=== PATIENT | male | born 1985 | race Caucasian/White ===

== ENCOUNTER 2021-08-22 21:10 | Emergency (ER) | payer OTHER ==
[~2021-08-22] VITALS: Ht 182.9 cm; Wt 77.2 kg
[2021-08-22] MEDS ORDERED: IV NORMAL SALINE 1000ML BAG 1,000 ML IV ONE (21:45)
[2021-08-22] MEDS ORDERED: diphenhydrAMINE 50 MG/ML VIAL IVP ONE (21:45)
[2021-08-22] MEDS ORDERED: DEXAMETHASONE SOD PHOS 20 MG/5 ML VIAL. IV ONE (21:45)
[2021-08-22] MEDS ORDERED: PROCHLORPERAZINE 10 MG/2 ML VIAL. IV ONE (21:45)
--- NOTE | 2021-08-22 21:48 | ED.ADGEN ---
Past Medical History Additional Past Medical Histor: ADHD, PREVIOUS SI ATTEMPTS Past Surgical History: Cholecystectomy, Other Additional Past Surgical Histo: ICL, HERNIA, L TESTICAL SURGERY Smoking Status: Current Every Day Smoker Alcohol Use: Occasionally General Adult EDM: Chief Complaint: SUICDAL IDEATION HPI: HPI: Patient is a 36 year old male presenting via EMS for suicidal ideations and h eadache. Patient states that he has had a headache is all over and throbbing for the past 2 weeks. It is similar to his current headaches but would not go away. He says he went to his primary care physician last week and got IM injections of Toradol and Phenergan. He states he had some improvement after that but the headache has intensified again. Denies any neck pain or stiffness. Denies any vision changes. Complaining of photophobia. States he is trying to commit suicide 3 times in the past year by hanging. Says his plan will be hanging again this time. Review of Systems: Review of Systems: All other systems within normal limits except for as noted in the HPI Current Medications: Current Medications Medications (Trade) Dose Ordered Sig/Shi Start Time Stop Time Status Last Admin Dose Admin Dexamethasone Sodium Phosphate (Decadron) 10 mg 1X ONCE 08/22/21 21:45 08/22/21 21:54 DC 08/22/21 22:08 10 MG Diphenhydramine HCl (Benadryl) 25 mg 1X ONCE 08/22/21 21:45 08/22/21 21:54 DC 08/22/21 22:10 25 MG Nicotine (Nicoderm Cq 21mg) 1 patch 1X ONCE 08/23/21 09:00 08/23/21 09:01 DC 08/23/21 08:33 1 PATCH Prochlorperazine Edisylate (Compazine) 10 mg 1X ONCE 08/22/21 21:45 08/22/21 21:54 DC 08/22/21 22:12 10 MG Sodium Chloride 1,000 ml @ 1,000 mls/hr 1X ONCE 08/22/21 21:45 08/22/21 22:44 DC 08/22/21 21:45 1,000 MLS/HR Allergies: Allergies: Allergies Coded Allergies Type Severity Reaction Last Updated Verified Penicillins Allergy Severe 08/22/21 Yes sulfamethoxazole Allergy Severe 08/22/21 Yes trimethoprim Allergy Severe 08/22/21 Yes Uncoded Allergies Type Severity Reaction Last Updated Verified RED MEAT Allergy Unknown UNKNOWN 08/23/21 Physical Exam: PE: Constitutional: Well developed, well nourished, no acute distress, non-toxic appearance. [] HENT: Normocephalic, atraumatic, bilateral external ears normal, nose normal. [] Eyes: PERRLA, conjunctiva normal, no discharge. [] Neck: No rigidity, supple, no stridor. [] Cardiovascular: Regular rate and rhythm, brisk cap refill [] Lungs & Thorax: Non labored symmetric respirations, no tachypnea or respiratory distress [] Abdomen: Soft, nondistended. Skin: Warm, dry, no erythema, no rash. [] Back: Unremarkable Extremities: No deformities, range of motion grossly intact, no lower extremity edema [] Neurologic: Alert and oriented X 3, no focal deficits noted. [] Psychologic: Suicidal ideation [] Current Patient Data: Labs: Laboratory Tests Test 08/22/21 22:00 08/22/21 23:05 08/22/21 23:55 White Blood Count 9.7 x10^3/uL (4.0-11.0) Red Blood Count 4.82 x10^6/uL (4.30-5.70) Hemoglobin 15.3 g/dL (13.0-17.5) Hematocrit 43.0 % (39.0-53.0) Mean Corpuscular Volume 89 fL (79-100) Mean Corpuscular Hemoglobin 32 pg (25-35) Mean Corpuscular Hemoglobin Concent 36 g/dL (31-37) Red Cell Distribution Width 12.3 % (11.5-14.5) Platelet Count 246 x10^3/uL (140-400) Neutrophils (%) (Auto) 76 % (31-73) H Lymphocytes (%) (Auto) 18 % (24-48) L Monocytes (%) (Auto) 5 % (0-9) Eosinophils (%) (Auto) 0 % (0-3) Basophils (%) (Auto) 1 % (0-3) Neutrophils # (Auto) 7.4 x10^3/uL (1.8-7.7) Lymphocytes # (Auto) 1.7 x10^3/uL (1.0-4.8) Monocytes # (Auto) 0.5 x10^3/uL (0.0-1.1) Eosinophils # (Auto) 0.0 x10^3/uL (0.0-0.7) Basophils # (Auto) 0.1 x10^3/uL (0.0-0.2) Sodium Level 139 mmol/L (136-145) Potassium Level 3.7 mmol/L (3.5-5.1) Chloride Level 102 mmol/L (98-107) Carbon Dioxide Level 24 mmol/L (21-32) Anion Gap 13 (6-14) Blood Urea Nitrogen 15 mg/dL (8-26) Creatinine 1.2 mg/dL (0.7-1.3) Estimated GFR (Cockcroft-Gault) 68.1 BUN/Creatinine Ratio 13 (6-20) Glucose Level 87 mg/dL (70-99) Calcium Level 9.2 mg/dL (8.5-10.1) Magnesium Level 1.9 mg/dL (1.8-2.4) Total Bilirubin 1.0 mg/dL (0.2-1.0) Aspartate Amino Transferase (AST) 12 U/L (15-37) L Alanine Aminotransferase (ALT) 20 U/L (16-63) Alkaline Phosphatase 75 U/L (46-116) Total Protein 7.9 g/dL (6.4-8.2) Albumin 4.6 g/dL (3.4-5.0) Albumin/Globulin Ratio 1.4 (1.0-1.7) Salicylates Level 2.5 mg/dL (2.8-20.0) L Salicylate Last Dose Date Salicylate Last Dose Time Acetaminophen Level < 2 mcg/ml (10-30) L Acetaminophen Last Dose Date Acetaminophen Last Dose Time Ethyl Alcohol Level < 10 mg/dL (0-10) SARS-CoV-2 RNA (FACUNDO) Negative (Negative) SARS-CoV-2 Antigen (Rapid) Negative (NEGATIVE) Urine Collection Type Unknown Urine Color Yellow Urine Clarity Hazy Urine pH 5.5 (<5.0-8.0) Urine Specific [place] 1.020 (1.000-1.030) Urine Protein Negative mg/dL (NEG-TRACE) Urine Glucose (UA) Negative mg/dL (NEG) Urine Ketones (Stick) 15 mg/dL (NEG) Urine Blood Negative (NEG) Urine Nitrite Negative (NEG) Urine Bilirubin Negative (NEG) Urine Urobilinogen Dipstick 1.0 mg/dL (0.2 mg/dL) Urine Leukocyte Esterase Negative (NEG) Urine RBC 0 /HPF (0-2) Urine WBC 0 /HPF (0-4) Urine Squamous Epithelial Cells Few /LPF Urine Bacteria 0 /HPF (0-FEW) Urine Hyaline Casts Few /HPF Urine Mucus Marked /LPF Urine Opiates Screen Neg (NEG) Urine Methadone Screen Neg (NEG) Urine Barbiturates Neg (NEG) Urine Phencyclidine Screen Neg (NEG) Urine Amphetamine/Methamphetamine Pos (NEG) Urine Benzodiazepines Screen Neg (NEG) Urine Cocaine Screen Neg (NEG) Urine Cannabinoids Screen Pos (NEG) Urine Ethyl Alcohol Neg (NEG) Laboratory Tests 08/22/21 22:00 Laboratory Tests 08/22/21 22:00 Vital Signs: Vital Signs Date Time Temp Pulse Resp B/P (MAP) Pulse Ox O2 Delivery O2 Flow Rate FiO2 08/23/21 14:22 82 19 125/75 (92) 97 Room Air 08/23/21 08:29 97.5 97.5 EKG: EKG: Sinus rhythm, heart rate 62 bpm, incomplete right bundle branch block, no ST ovation depression, normal intervals [] Heart Score: C/O Chest Pain: No Risk Factors: Risk Factors: DM, Current or recent (<one month) smoker, HTN, HLP, family h istory of CAD, obesity. Risk Scores: Score 0 - 3: 2.5% MACE over next 6 weeks - Discharge Home Score 4 - 6: 20.3% MACE over next 6 weeks - Admit for Clinical Observation Score 7 - 10: 72.7% MACE over next 6 weeks - Early Invasive Strategies Radiology/Procedures: Radiology/Procedures: [facility] [address] [place] [address] IMAGING REPORT Signed PATIENT: NAHID SEXTON ACCOUNT: [id number] : 1985 LOCATION: ER AGE: 36 SEX: M EXAM STATUS: PRE ER ORD. PHYSICIAN: GENEVA BAY MD REASON: headache PROCEDURE: CT HEAD WO CONTRAST CT scan of the head without contrast 08/22/2021 Clinical History: Headache. Technique: Unenhanced, contiguous, 5 mm axial sections were obtained through the head. One or more of the following individualized dose reduction techniques were utilized for this study: 1. Automated exposure control. 2. Adjustment of the mA and/or kV according to patient size. 3. Use of iterative reconstruction technique. Findings: The ventricles and sulci are within normal limits in size and configuration. No acute parenchymal abnormality is seen. No extra-axial fluid collection is noted. No skull fracture is seen. Impression: No acute intracranial abnormality is seen. Electronically signed by: Mihir Fernandez MD (08/22/2021 10:45 PM) [id number] DICTATED and SIGNED BY: MIHIR FERNANDEZ MD DATE: 08/22/21 [id number] [] Course & Med Decision Making: Course & Med Decision Making Pertinent Labs and Imaging studies reviewed. (See chart for details) Medically cleared for PAT evaluation Patient told PAT number Virginie that he will commit suicide if not inpatient but also states that since he is discharged he will kill himself as soon as he leaves the facility. Patient is still remaining voluntary at this point. And is pending placement at shift change, his file is currently being reviewed by [facility]. 0600- Sign out received from Dr. Bay for patient pending acceptance for inpatient psychiatric services. Will continue 1:1 observation and await accepting facility or physician. Labs reviewed. In agreement with medical clearance. [id number]- Patient accepted for inpatient psychiatric services to [facility] by Dr. Vinson (Psych). Patient stable for transfer for admission to [facility]. Discussed findings and plan with patient, who acknowledges understanding and agreement. Lady Disclaimer: Lady Disclaimer: This electronic medical record was generated, in whole or in part, using a voice recognition dictation system. Departure Departure Impression: Primary Impression: Suicidal intent Additional Impression: Migraine Disposition: [address] [place] [address] ([facility]- Dr. Vinson accepting) Condition: GUARDED Problem Qualifiers Additional Impression: Migraine Migraine type: unspecified Status migrainosus presence: without status migrainosus Intractability: not intractable Qualified Codes: G43.909 - Migraine, unspecified, not intractable, without status migrainosus GENEVA BAY MD Aug 22, 2021 21:48 SHARIF GUZMAN DO Aug 23, 2021 07:03
[2021-08-22 22:13] LABS: BASO # 0.1 x10^3/uL (0.0-0.2); BASO % 1 % (0-3); EOS % 0 % (0-3); HEMOGLOBIN 15.3 g/dL (13.0-17.5); LYMPH # 1.7 x10^3/uL (1.0-4.8); LYMPH % 18 % (24-48); MEAN CORPUSCULAR HEMOGLOBIN 32 pg (25-35); MEAN CORPUSCULAR HGB CONC 36 g/dL (31-37); MEAN CORPUSCULAR VOLUME 89 fL (79-100); MONO # 0.5 x10^3/uL (0.0-1.1); MONO % 5 % (0-9); NEUT # 7.4 x10^3/uL (1.8-7.7); NEUT % 76 % (31-73); PLATELET COUNT 246 x10^3/uL (140-400); RED BLOOD COUNT 4.82 x10^6/uL (4.30-5.70); RED CELL DISTRIBUTION WIDTH 12.3 % (11.5-14.5); WHITE BLOOD COUNT 9.7 x10^3/uL (4.0-11.0)
[2021-08-22 22:22] LABS: CALCIUM 9.2 mg/dL (8.5-10.1); CREATININE 1.2 mg/dL (0.7-1.3); GFR 68.1; POTASSIUM 3.7 mmol/L (3.5-5.1)
[2021-08-22 22:26] LABS: ACETAMIN < 2 mcg/ml (10-30); SALIC 2.5 mg/dL (2.8-20.0)
[2021-08-22 22:27] LABS: ETHANOL < 10 mg/dL (0-10)
[2021-08-22 22:28] LABS: ALBUMIN 4.6 g/dL (3.4-5.0); ALBUMIN/GLOBULIN RATIO 1.4 (1.0-1.7); MAGNESIUM 1.9 mg/dL (1.8-2.4); TOTAL PROTEIN 7.9 g/dL (6.4-8.2)
--- NOTE | 2021-08-22 22:47 | RAD ---
CT scan of the head without contrast 08/22/2021 Clinical History: Headache. Technique: Unenhanced, contiguous, 5 mm axial sections were obtained through the head. One or more of the following individualized dose reduction techniques were utilized for this study: 1. Automated exposure control. 2. Adjustment of the mA and/or kV according to patient size. 3. Use of iterative reconstruction technique. Findings: The ventricles and sulci are within normal limits in size and configuration. No acute paren chymal abnormality is seen. No extra-axial fluid collection is noted. No skull fracture is seen. Impression: No acute intracranial abnormality is seen. Electronically signed by: Mihir Fernandez MD (08/22/2021 10:45 PM) [id number]
[2021-08-23 00:01] LABS: BILIRUBIN,URINE NEGATIVE (NEG); COLOR,URINE YELLOW; NITRITE,URINE NEGATIVE (NEG); PH,URINE 5.5 (<5.0-8.0); PROTEIN,URINE NEGATIVE (NEG-TRACE)
[2021-08-23 00:07] LABS: CLARITY,URINE HAZY
[2021-08-23 00:08] LABS: BACTERIA,URINE 0 /HPF (0-FEW); HYALINE CASTS, URINE FEW /HPF; RBC,URINE 0 /HPF (0-2); WBC,URINE 0 /HPF (0-4)
[2021-08-23 00:12] LABS: BARBITURATES NEG (NEG); BENZODIAZEPINES NEG (NEG); CANNABINOIDS POS (NEG); COCAINE NEG (NEG); METHADONE NEG (NEG); OPIATES NEG (NEG); PHENCYCLIDINE NEG (NEG)
[2021-08-23 00:14] LABS: AMPHETAMINE/METHAMPHETAMINE POS (NEG)
--- NOTE | 2021-08-23 06:18 | EKG ---
[facility] [address] [place] [address] Test Date: 2021-08-22 Test Time: 21:55:15 Pat Name: NAHID SEXTON Department: Room: Gender: M Director Of Retail Merchandising: : 1985 Requested By: GENEVA BAY Order Number: [id number] Reading MD: Daniele Peterson Measurements Intervals [place] Rate: 62 P: 4 MO: 148 QRS: 6 QRSD: 100 T: 38 QT: 390 QTc: 398 Interpretive Statements SINUS RHYTHM MILD NON SPECIFIC ST-T WAVE CHANGES Electronically Signed On 08-23-2021 15:37:55 CDT by Dnaiele Peterson
[2021-08-23] MEDS ORDERED: NICOTINE 21MG PATCH. TD ONE (09:00)
[2021-08-23 15:23] VITALS: BP 113/68
== END 2021-08-23 15:35 ==
LOC: ER 21:10
DX: R45.851 Suicidal ideations (principal); G43.909 Migraine, unspecified, not intractable, without status migrainosus; F17.200 Nicotine dependence, unspecified, uncomplicated; Z20.822 Contact with and (suspected) exposure to COVID-19; Z88.0 Allergy status to penicillin; Z88.2 Allergy status to sulfonamides; Z88.1 Allergy status to other antibiotic agents
CPT/HCPCS: 36415; 70450; 80053; 80307; 80329; 81001; 83735; 85025; 87426; 93005; 96361; 96374; 96375; 99285; G0480; J0780; J1100; J1200; J7030; U0003; U0005